=== PATIENT | male | born 1945 | race Caucasian/White ===

== ENCOUNTER 2024-12-19 16:12 | Outpatient (CLI) | payer MEDICARE | END 2024-12-19 16:13 | disposition home or self-care (01) | LOC: BURRAD 16:12 | PROVIDERS: ATTEND Family Medicine | DX: M54.50 Low back pain, unspecified (principal); G89.29 Other chronic pain; R97.20 Elevated prostate specific antigen [PSA]; M47.816 Spondylosis without myelopathy or radiculopathy, lumbar region | CPT/HCPCS: 72100 ==